=== PATIENT | male | born 1945 | race Asian ===

== ENCOUNTER 2016-07-07 03:07 | Observation (INO) | payer MEDICARE, BC ==
[2016-07-07] VITALS (8 sets, daily range): BP systolic 98–118; BP diastolic 56–64; PULSE 65–69; RESP 15–20; TEMP 98; Ht 167.6 cm; Wt 72.4 kg
[~2016-07-07] VITALS: Ht 167.6 cm; Wt 72.4 kg
[~2016-07-07 03:07] MED LIST: ALLO300T2 PO; ASPI-664 PO; GRAVIOLA PO; MULT-552 PO; PROBIOTIC ACID1 EACH PO; ROSU20TA PO; TAMS-14 PO; [UNRECOGNIZED DRUG - REMARK] PO
[2016-07-07] MEDS ORDERED: SOD CHLORIDE 0.9% 1,000 ML IV STA ×2 (03:16→09:34)
[2016-07-07] MEDS ORDERED: morphine 4 MG/ML VIAL IV STA (03:16)
[2016-07-07] MEDS ORDERED: ONDANSETRON 4 MG INJ IV STA (03:16)
[2016-07-07] MEDS ORDERED: DILTIAZEM 25 MG INJ IV ONE (03:30)
[2016-07-07 03:55] LABS: ADD SCAN DIFF NO
[2016-07-07 03:57] LABS: BASOPHILS % 0.5 % (0.0-2.0); EOSINOPHILS # 0.5 10^3/ul (0.0-0.5); EOSINOPHILS % 5.9 % (0.0-7.0); HEMATOCRIT 46.9 % (42.0-52.0); HEMOGLOBIN 15.7 g/dl (14.0-18.0); LYMPHOCYTES # 1.9 10^3/ul (0.8-2.9); MEAN CORPUSCULAR HGB CONC 33.5 g/dl (32.0-37.0); MEAN CORPUSCULAR VOLUME 92.5 fl (82.0-101.0); MEAN PLATELET VOLUME 9.7 fl (7.4-10.4); MONOCYTE # 0.6 10^3/ul (0.3-0.9); MONOCYTES % 6.6 % (0.0-11.0); NEUTROPHIL # 5.5 10^3/ul (1.6-7.5); NEUTROPHILS % 64.8 % (39.0-77.0); PLATELET COUNT 164 10^3/UL (140-415); RED BLOOD COUNT 5.07 10^6/ul (4.70-6.10); RED CELL DISTRIBUTION WIDTH 14.3 % (11.5-14.5); WHITE BLOOD COUNT 8.5 10^3/ul (4.8-10.8)
[2016-07-07 04:09] LABS: POTASSIUM 3.7 mmol/L (3.5-5.1)
[2016-07-07 04:12] LABS: CREATININE 0.85 mg/dl (0.61-1.24)
[2016-07-07 04:13] LABS: CALCIUM 9.7 mg/dl (8.4-10.2)
--- NOTE | 2016-07-07 04:20 | RADRPT ---
PROCEDURE: XR Chest. CLINICAL INDICATION: Chest pain TECHNIQUE: Single frontal chest x-ray. COMPARISON: 11/08/2015 FINDINGS: There is hypoinflation of the lungs. This accentuates the lung interstitium. No focal lung consoli dation is seen. The heart is not enlarged. ECG leads are projected over the chest. The patient is in lordotic position.. IMPRESSION: Hypoinflation of the lungs. No definite acute abnormality seen. RPTAT: HJES .Bereket Perdue MD, Date Time Electronically viewed and signed by .Bereket Perdue MD, on 07/07/2016 04:19 .S/
[2016-07-07 04:24] LABS: TROPONIN-I 0.014 ng/ml (0.00-0.12)
[2016-07-07 04:32] LABS: INR 0.92; PROTIME 12.4 Sec (12.2-14.2)
[2016-07-07 04:33] LABS: PARTIAL THROMBOPLASTIN TIME 31.4 Sec (25.0-35.0)
--- NOTE | 2016-07-07 05:15 | ERA ---
ER Documentation Chief Complaint Date/Time DATE: 07/07/16 TIME: 05:13 Chief Complaint palpitations, chest pressure pain,received aspirin 81 mg PO HPI This is a very pleasant 8-year-old male has a palpitation chest pressure. Since 1 hour ago. An 81 mg aspirin on arrival by EMS. Upon arrival patient is noted to be in rapid ventricular rate. Mild to moderate in intensity. Pain is mild to moderate intensity ROS All systems reviewed and are negative except as per history of present illness. Medications Home Meds Reported Medications [For Acid Reflux] No Conflict Check, PO 11/08/15 [Graviola] No Conflict Check, PO BID 11/08/15 Multivitamins* (Once Daily*) 1 Tab Tablet, 1 TAB PO DAILY, TAB 08/21/14 L.acidoph/L.rhamn/B.bif/B.long (PROBIOTIC ACIDOPHILUS BIOBEADS) 1 Each Tablet.dr , 1 EACH PO DAILY 08/21/14 Tamsulosin Hcl* (Flomax*) 0.4 Mg Cap.er.24h, 0.4 MG PO DAILY, CAP 08/21/14 Allopurinol* (Allopurinol*) 300 Mg Tablet, 150 MG PO DAILY, TAB 08/21/14 Aspirin (Low Dose Aspirin) 81 Mg Tablet.dr, 81 MG PO DAILY 08/21/14 Rosuvastatin Calcium* (Crestor*) 20 Mg Tablet, 20 MG PO HS, TAB 08/21/14 Allergies Allergies: Coded Allergies: No Known Allergy (Unverified , 11/08/15) PMhx/Soc History of Surgery: Yes (STENT PLACEMENT X2) Anesthesia Reaction: No Hx Neurological Disorder: No Hx Respiratory Disorders: No Hx Cardiac Disorders: No Hx Psychiatric Problems: No Hx Miscellaneous Medical Probl: Yes (HIGH CHOLESTEROL, GOUT, PROSTATE ISSUES) Hx Alcohol Use: Yes (OCCASIONAL ) Hx Substance Use: No Hx Tobacco Use: Yes (6 CIGS/DAY ) Smoking Status: Current every day smoker Physical Exam Vitals Vital Signs Date Time Temp Pulse Resp B/P Pulse Ox O2 Delivery O2 Flow Rate FiO2 07/07/16 03:36 Nasal Cannula 2 07/07/16 03:14 97.6 109 18 120/74 98 Physical Exam Const: [] Head: Atraumatic Eyes: Normal Conjunctiva ENT: Normal External Ears, Nose and Mouth. Neck: Full range of motion..~ No meningismus. Resp: Clear to auscultation bilaterally Cardio: Regular rate and rhythm, no murmurs Abd: Soft, non tender, non distended. Normal bowel sounds Skin: No petechiae or rashes Back: No midline or flank tenderness Ext: No cyanosis, or edema Neur: Awake and alert Psych: Normal Mood and Affect Result Diagram: 07/07/16 0348 07/07/16 0348 Results 24 hrs Laboratory Tests Test 07/07/16 03:48 Activated Partial Thromboplast Time 31.4Sec Anion Gap 18 Basophils # 0.010^3/ul Basophils % 0.5% Blood Urea Nitrogen 17mg/dl Calcium Level 9.7mg/dl Carbon Dioxide Level 25mmol/L Chloride Level 103mmol/L Creatinine 0.85mg/dl Eosinophils # 0.510^3/ul Eosinophils % 5.9% Glucose Level 90mg/dl Hematocrit 46.9% Hemoglobin 15.7g/dl INR International Normalized Ratio 0.92 Lymphocytes # 1.910^3/ul Lymphocytes % 22.0% Mean Corpuscular Hemoglobin 31.0pg Mean Corpuscular Hemoglobin Concent 33.5g/dl Mean Corpuscular Volume 92.5fl Mean Platelet Volume 9.7fl Monocytes # 0.610^3/ul Monocytes % 6.6% Neutrophils # 5.510^3/ul Neutrophils % 64.8% Nucleated Red Blood Cells # 0.010^3/ul Nucleated Red Blood Cells % 0.0/100WBC Platelet Count 69238^3/UL Potassium Level 3.7mmol/L Prothrombin Time 12.4Sec Prothrombin Time Ratio 1.0 Red Blood Count 5.0710^6/ul Red Cell Distribution Width 14.3% Sodium Level 142mmol/L Troponin I 0.014ng/ml White Blood Count 8.510^3/ul Current Medications Medications (Trade) Dose Ordered Sig/Keira Route PRN Reason Start Time Stop Time Status Last Admin Dose Admin Sodium Chloride (NS) 1,000 ml @ 1,000 mls/hr Q1H STAT IV 07/07/16 03:16 07/07/16 04:15 DC 07/07/16 03:47 Morphine Sulfate (morphine) 4 mg ONCE STAT IV 07/07/16 03:16 07/07/16 03:21 DC 07/07/16 03:35 Ondansetron HCl (Zofran Inj) 4 mg ONCE STAT IV 07/07/16 03:16 07/07/16 03:21 DC 07/07/16 03:35 Diltiazem HCl (Cardizem Iv) 20 mg ONCE ONCE IV 07/07/16 03:30 07/07/16 03:31 DC 07/07/16 03:35 Procedures/MDM EKG: Rate/Rhythm: Variable AL and QT intervals. Tachycardic rate QRS, ST, T-waves: No changes consistent w/ acute ischemia Impression: A. fib with RVR EKG: Post Cardizem Rate/Rhythm: Normal Sinus Rhythm QRS, ST, T-waves: No changes consistent w/ acute ischemia Impression: No evidence of ischemia or arrhythmia Chest X-ray 1V Interpreted by me: Soft Tissue: No acute abnormalities Bones: No acute abnormalities Mediastinum/Cardiac Silhouette/Lungs: No acute abnormalities Patient's symptoms are concerning for cardiac cause will require inpatient workup and continuous monitoring. Further w/u for ischemia, arrhythmia, PE or dissection will be deferred to the inpatient team. Accepting Care Team: Current data and ongoing care discussed. Time: 5:15 AM Primary Provider: Hospitalist Consulting: [XOXOXO] Outstanding Data: none Critical Care: Time: 44 minutes Treatments/Evaluations: Close monitoring and treatment of unstable vital signs, cardiorespiratory, and neurologic status, while maintaining tight balance of fluid, respiratory, and cardiac interventions. Departure Diagnosis: Primary Impression: Atrial fibrillation with RVR Condition: Serious GHAZALA PIRES KristenBecca Jul 07, 2016 05:15
--- NOTE | 2016-07-07 10:08 | QN ---
Documentation Comment Observation Note: Time: 4 hours Family Hx: Negative for diabetes Evaluation: Multiple exams showed improving symptoms and no evidence of clinical decompensation. HUNTER HANCOCK MD Jul 07, 2016 10:08
[2016-07-07] MEDS ORDERED: BISACODYL (EC) 5 MG TAB PO PRN (11:30)
[2016-07-07] MEDS ORDERED: DOCUSATE SODIUM 100 MG CAP PO PRN (11:30)
[2016-07-07] MEDS ORDERED: ONDANSETRON 4 MG INJ IV PRN (11:30)
[2016-07-07] MEDS ORDERED: MAGNESIUM HYDROXIDE 30ML CUP PO PRN (11:30)
[2016-07-07] MEDS ORDERED: ACETAMINOPHEN 325 MG TAB PO PRN (11:30)
[2016-07-07] MEDS ORDERED: NACL 0.9% 3 ML SYG IV SCH (11:30)
[2016-07-07] MEDS ORDERED: ALBUTEROL/IPRATROPIUM (NEB) 3 ML AMP HHN PRN (11:30)
[2016-07-07] MEDS ORDERED: ZOLPIDEM 5 MG TAB PO PRN (11:30)
[2016-07-07] MEDS ORDERED: morphine 2 MG INJ IV PRN (11:30)
[2016-07-07] MEDS ORDERED: HYDROCODONE/APAP (5/325) TAB PO PRN (11:30)
--- NOTE | 2016-07-07 11:39 | HP ---
DATE OF ADMISSION: 07/07/2016 CHIEF COMPLAINT: Chest pain, palpitations. REASON FOR ADMISSION: Atrial fibrillation with rapid ventricular rate, atypical chest pain, hyperte nsion. HISTORY OF PRESENT ILLNESS: This is a 71-year-old male who has a past medical history of previous c oronary artery disease and had a stent placement x2, hyperlipidemia, gout, BPH, history of previous 1 episode of atrial fibrillation as per the patient. He is currently on aspirin for anticoagulation and antiplatelet therapy. He presented to the [facility] ER yesterday night with chest pa in and palpitations. The patient describes pain as pressure-like, started approximately 1 hour prio r to admission. He took aspirin and upon arrival, he was noted to be in atrial fibrillation with ra pid ventricular rate. He also was complaining of pain 8 out of 10. He received nitroglycerin for c hest pain also received Cardizem IV, along with that a couple of doses of morphine and Zofran. His rate is now controlled. He is in intermittent atrial fibrillation with rapid rate up to 66 to 70, b ut his blood pressure drops down to 85/56. He is saturating 99% on 2 liters nasal cannula. He is g etting admitted to the telemetry floor for further workup of the chest pain and atrial fibrillation with rapid ventricular rate, and cardiology evaluation by Dr. Lopes. REVIEW OF SYSTEMS: Positive for chest, pressure-like pain, palpitations. Other 12 point review of systems has been obtained and is negative except what is mentioned in the history of present illness . PAST MEDICAL HISTORY: Notable for hypertension, hyperlipidemia, BPH, history of coronary artery dis ease, status post coronary artery stent placement x2, gout. PAST SURGICAL HISTORY: History of cardiac catheterization and had a stent placement x2. SOCIAL HISTORY: The patient still smokes cigarettes, typically 6 cigarettes a day, occasionally use s alcohol, no recreational drug use. FAMILY HISTORY: Not available. PHYSICAL EXAMINATION: VITAL SIGNS: Temperature 98, heart rate 66, respirations 16, blood pressure 95/56. The patient pre sented with a heart rate up to 112 with atrial fibrillation with rapid ventricular rate. GENERAL: Awake, alert, no acute distress. HEENT: Normal. Oropharynx clear. NECK: Supple, no JVD, no lymphadenopathy. LUNGS: Clear to auscultation. No crackles, no wheezes. HEART: S1, S2 irregularly irregular rate. ABDOMEN: Soft, nontender, nondistended. Bowel sounds are present. EXTREMITIES: No clubbing, cyanosis, edema. NEUROLOGICAL: Nonfocal, intact. PSYCHIATRIC: Appropriate affect and mood. SKIN: No rash. LABORATORY DATA/DIAGNOSTIC IMAGING: Showed WBC 8.5, hemoglobin 15.7, platelet count 164. Sodium 14 2, potassium 3.7, chloride 103, bicarbonate 25, BUN 17, creatinine 0.8, glucose 90, calcium 9.7. Tr oponin x1 negative. Prothrombin time 12.4, PTT 31.4, INR 0.92. WBC 8.5, hemoglobin 15.7, platelet count 164. Chest x-ray 1 view portable, done in the emergency room, hypoinflation and lungs, no acu te abnormality. EKG shows an irregularly irregular rhythm, heart rate in the 60s to 70s. He presented with a heart rate up to 125. IMPRESSION: This is a 71-year-old male with: 1. Atrial fibrillation with rapid ventricular rate, history of previous paroxysmal atrial fibrillat ion as per the patient. 2. Atypical chest pain. 3. History of coronary artery disease, status post previous 2 stent placement. 4. Hypertension. 5. Hyperlipidemia. 6. Benign prostatic hypertrophy. 7. History of smoking, current smoker. 8. Admission to the telemetry floor. Serial troponins and EKG for workup of atypical chest pain. 9. Cardiology consult, Dr. Lopes, to see patient. 10. Echocardiogram has been ordered for workup of atrial fibrillation. We will give him some IV fl uids for hypotension episode in the emergency room. Continue his home medications of Cardizem for r ate control. The patient currently seen in the emergency room and he will be getting admitted to [facility] telemetry floor. At the time of my evaluation, the smoking cessation counseling was done. Total time spent in this patient's evaluations, making assessments, plan, communicating with the [facility] staff and updating the patient at bedside took more than 90 minutes. Dictated By: TASH BRITO MD, KP/[place] Conf#: [id number] DID#: [id number]
[2016-07-07 14:16] LABS: CK-MB 0.77 ng/ml (0.0-2.4)
[2016-07-07 14:18] LABS: TROPONIN-I 0.022 ng/ml (0.00-0.12)
[2016-07-07] MEDS: DEXTROSE 5%-0.45% NACL 1,000 ML IV SCH (15:02)
[2016-07-07] MEDS ORDERED: METOPROLOL 5 MG INJ IV PRN (17:00)
[2016-07-07] MEDS ORDERED: NITROGLYCERIN (SL) 0.4 MG TAB SL PRN (17:00)
--- NOTE | 2016-07-07 18:15 | CONS ---
DATE OF ADMISSION: 07/07/2016 DATE OF CONSULTATION: 07/07/2016 REASON FOR CONSULTATION: Paroxysmal atrial fibrillation with rapid ventricular response, as well as chest pain, assess for acute coronary syndrome. REQUESTING PHYSICIAN: Dr. Tash Glez. HISTORY OF PRESENT ILLNESS: Mr. Perez is a 71-year-old male with history of coronary artery dise ase, status post prior PTCA and stent placement, dyslipidemia, hypertension, BPH, paroxysmal atrial fibrillation on aspirin, not systemic anticoagulation, who presents with complaints of chest pain de scribed as a pressure-like, and was found to be in atrial fibrillation with rapid ventricular respon se. Upon arrival, temperature 97.6, blood pressure 120/74, [id number], respirations 18, saturating 98 %. The patient's labs revealed white count 8.5, hemoglobin 15.7, platelet count 164. Sodium 142, p otassium 3.7, creatinine 0.85, BUN 17. Troponin negative. INR 0.92. The patient underwent a chest x-ray revealing hypoinflation of the lungs, no definite acute abnormalities seen. The patient's el ectrocardiogram was atrial fibrillation at a rate of 143, normal axis with diffuse nonspecific ST an d T-wave abnormalities. The patient was treated with IV fluid hydration, diltiazem 20 mg IV x1, and admitted to the floor. Since admission to the floor, the patient has converted to sinus rhythm, wh ere he remains. Sinus rhythm, sinus antoine, high 50s to low 60s. PAST MEDICAL HISTORY: As above in HPI. MEDICATIONS CURRENTLY IN HOSPITAL: 1. Aspirin 81 mg daily. 2. Flomax 0.4 mg daily. 3. Lipitor 20 mg at bedtime. 4. Pepcid. 5. Zofran. 6. Morphine. 7. Colace. 8. Dulcolax. 9. Ambien. 10. DuoNebs. 11. Allopurinol. ALLERGIES: NO KNOWN DRUG ALLERGIES. SOCIAL HISTORY: Positive tobacco. No ETOH or illicit drug use. FAMILY HISTORY: No history of sudden cardiac or early CAD. REVIEW OF SYSTEMS: As above in HPI. CONSTITUTIONAL: No fevers, chills. PULMONARY: No current shortness of breath. CARDIOVASCULAR: Atrial fibrillation, chest pain. GASTROINTESTINAL: No vomiting. GENITOURINARY: No hematuria. MUSCULOSKELETAL: Degenerative joint disease. PSYCHIATRIC: The patient denies depression. NEUROLOGIC: No documented history of CVA. PHYSICAL EXAMINATION: VITAL SIGNS: Temperature 98.2, blood pressure 108/56, pulse 70, respiratory rate 18, satting 98%. GENERAL: The patient is alert, awake, and complaining of intermittent chest pain. NECK: JVP approximately 8 cm water. CHEST: Fair air movement throughout. HEART: Regular rate and rhythm. S1, S2. I/ systolic murmur, nondisplaced PMI. ABDOMEN: Positive bowel sounds, soft. EXTREMITIES: No pitting edema, 1+ pulses bilaterally, posterior tibial. LABORATORY DATA: As above in HPI. Most recently from today, troponin negative x2. IMAGING STUDIES: As above in HPI. No further imaging studies for my review at this time. ECG: As above in HPI. No further electrocardiograms for my review at this time. IMPRESSION: 1. Paroxysmal atrial fibrillation with rapid ventricular response, now in sinus rhythm. 2. Chest pain, assess for acute coronary syndrome. 3. History of percutaneous transluminal coronary angioplasty and stent placement, unknown vessels. 4. Hypertension. 5. Dyslipidemia. RECOMMENDATIONS: 1. At this time, would maintain patient on telemetry monitoring to follow rhythm and rate control c losely. 2. Will complete a rule out for myocardial infarction to ensure the patient's chest pain was not in dicative of acute coronary syndrome, such as an acute myocardial infarction. 3. Continue the patient's current statin therapy and adjust it according to a fasting lipid panel t o be checked. 4. Continue the patient's aspirin, but will increase to 325 mg aspirin at this time to prevent thro mboembolic complication in the setting of paroxysmal atrial fibrillation and will give consideration to initiation of systemic anticoagulation for prevention of thromboembolic complications of atrial fibrillation. 5. Will initiate patient on beta-neftali for improvement in heart rate control in the setting of EK G abnormalities and chest pain. 6. Check a 2D echocardiogram to further assess patient's ejection fraction, wall motion, rule any m ajor valve abnormalities. 7. Check a TSH to be sure that subclinical hyperthyroidism is not contributing to the patient's cur rent bout of tachyarrhythmia. 8. The patient ruled out for myocardial infarction. Given the patient's history of percutaneous tr ansluminal coronary angioplasty and stent placement, EKG abnormalities, the patient will benefit fro m further risk stratification inpatient and, thus will be scheduled to have a stress first thing in the morning. Thanks for allowing me to take part in the care of this patient. I will continue to follow along ve ry closely with you with further recommendations to be made as the patient progresses through his in patient hospital clinical course. Dictated By: SARAVANAN MOHAN/[place] Conf#: [id number] DID#: [id number] CC: TASH GLEZ MD; MADELIN DOMÍNGUEZ MD;*[facility]*
[2016-07-07 18:32] LABS: TROPONIN-I 0.016 ng/ml (0.00-0.12)
[2016-07-07 18:37] LABS: CK-MB 0.84 ng/ml (0.0-2.4)
--- NOTE | 2016-07-07 19:31 | RADRPT ---
Echocardiogram Report Patient Name: BETTY GAVIN Gender: Male Date: 1945 Study Date: 07-Jul-2016 Artist Relationship Manager: [facility] Location: [facility] Ref. Physician: TASH BRITO Quality: Good Procedures: Transthoracic echocardiogram with complete 2D, M-Mode, and doppler examination. Indications: Atrial Fibrillation WITH RVR. 2D/M Mode Doppler Measurement Value Normal Ranges Measurement Value Normal Ranges LVIDd 2D 4.6 3.5 - 5.6 cm AV Peak Patrice 1.3 m/sec LVIDs 2D 2.9 2.1 - 4.1 cm AV Peak PG 7.0 mmHg FS 2D 36.4 % AI Peak PG 47.0 mmHg LVPWd 2D 1.3 0.6 - 1.1 cm AI Peak Patrice 3.4 m/sec IVSd 2D 1.3 0.6 - 1.1 cm AI PHT 576.0 msec IVS/LVPW 2D 1.0 LVOT Peak Patrice 0.9 m/sec AoR Diam 2D 2.9 2.0 - 3.7 cm LVOT Peak PG 3.0 mmHg LA/Ao 2D 1 0 - 1 MV E Peak Patrice 1.0 m/sec EDV 2D 96.7 cm3 MV A Peak Patrice 0.8 m/sec ESV 2D 24.9 cm3 MV E/A 1.3 LA Dimen 2D 3.9 2.3 - 4.0 cm MV Decel Time 218 msec MV E/A 1.3 TR Peak Patrice 2.3 m/sec TR Peak PG 20.0 mmHg Findings Left Ventricle: Normal left ventricular systolic function. Normal left ventricular cavity size. Mild concentric left ventricular hypertrophy. Ejection fraction is visually estimated at 55 %. Abnormal Diastolic Function. Right Ventricle: Normal right ventricular size. Normal right ventricular systolic function. Left Atrium: Upper limit of normal left atrial size. Right Atrium: The right atrium is normal in size. Mitral Valve: Mild mitral leaflet calcification. Mild mitral annular calcification. Trace mitral regurgitation. Aortic Valve: Trileaflet aortic valve. Mild aortic valve regurgitation. Tricuspid Valve: Estimated peak PA systolic pressure 23 mmHg. There is mild tricuspid regurgitation. Pulmonic Valve: Pulmonic valve not well visualized. There is mild pulmonic regurgitation. Pericardium: Normal pericardium with no significant pericardial effusion. Aorta: Normal aortic root. IVC: Normal size and normal respiratory collapse consistent with normal right atrial pressure. Conclusions Normal left ventricular systolic function. Normal left ventricular cavity size. Mild concentric left ventricular hypertrophy. Ejection fraction is visually estimated at 55 %. Abnormal Diastolic Function. Mild mitral leaflet calcification. Mild mitral annular calcification. Trace mitral regurgitation. Trileaflet aortic valve. Mild aortic valve regurgitation. Estimated peak PA systolic pressure 23 mmHg. There is mild tricuspid regurgitation. Pulmonic valve not well visualized. There is mild pulmonic regurgitation. Electronically Signed By: Malcolm Lopes 07-Jul-2016 19:30:48 -0800 Patient Name: BETTY GAVIN Study Date: 07-Jul-2016 [id number]
[2016-07-07] MEDS ORDERED: ATORVASTATIN 20 MG TAB PO SCH (21:00)
[2016-07-07] MEDS: METOPROLOL 25 MG TAB PO SCH (21:00)
[2016-07-07] MEDS: FAMOTIDINE 20 MG INJ IV SCH (21:02)
[2016-07-07] MEDS: ENOXAPARIN 80 MG/0.8 ML SYG SC SCH (21:14)
[2016-07-08] VITALS (9 sets, daily range): BP systolic 92–130; BP diastolic 58–72; PULSE 61–72; RESP 15–19
[2016-07-08] MEDS: DEXTROSE 5%-0.45% NACL 1,000 ML IV SCH ×2 (01:37→04:13)
[2016-07-08 06:54] LABS: ADD SCAN DIFF NO
[2016-07-08 07:19] LABS: BASOPHILS % 0.6 % (0.0-2.0); EOSINOPHILS # 0.5 10^3/ul (0.0-0.5); EOSINOPHILS % 7.4 % (0.0-7.0); HEMATOCRIT 42.2 % (42.0-52.0); HEMOGLOBIN 13.8 g/dl (14.0-18.0); LYMPHOCYTES # 1.6 10^3/ul (0.8-2.9); LYMPHOCYTES % 24.3 % (15.0-51.0); MEAN CORPUSCULAR HEMOGLOBIN 30.9 pg (29.0-33.0); MEAN CORPUSCULAR HGB CONC 32.7 g/dl (32.0-37.0); MEAN CORPUSCULAR VOLUME 94.4 fl (82.0-101.0); MEAN PLATELET VOLUME 9.8 fl (7.4-10.4); MONOCYTE # 0.5 10^3/ul (0.3-0.9); MONOCYTES % 6.9 % (0.0-11.0); NEUTROPHIL # 3.9 10^3/ul (1.6-7.5); NEUTROPHILS % 60.5 % (39.0-77.0); PLATELET COUNT 154 10^3/UL (140-415); RED BLOOD COUNT 4.47 10^6/ul (4.70-6.10); RED CELL DISTRIBUTION WIDTH 14.5 % (11.5-14.5); WHITE BLOOD COUNT 6.5 10^3/ul (4.8-10.8)
[2016-07-08 07:32] LABS: T3 UPTAKE 42.8 % (23.5-40.5)
[2016-07-08 07:46] LABS: THYROID STIMULATING HORMONE 0.823 MIU/L (0.465-4.680)
[2016-07-08 07:57] LABS: ALBUMIN 3.1 g/dl (3.3-4.9)
[2016-07-08 07:58] LABS: POTASSIUM 4.1 mmol/L (3.5-5.1)
[2016-07-08 08:00] LABS: BILIRUBIN,INDIRECT 0.2 mg/dl (0-1.1); BILIRUBIN,TOTAL 0.2 mg/dl (0.2-1.3); CREATININE 0.91 mg/dl (0.61-1.24)
[2016-07-08 08:01] LABS: ALBUMIN/GLOBULIN RATIO 1.14; CALCIUM 8.5 mg/dl (8.4-10.2); TOTAL PROTEIN 5.8 g/dl (6.1-8.1)
[2016-07-08 08:02] LABS: CHOL/HDL RATIO 2.8 RATIO; MAGNESIUM 1.8 mg/dl (1.7-2.5)
[2016-07-08] MEDS ORDERED: ALLOPURINOL 300 MG TAB PO SCH (09:00)
[2016-07-08] MEDS ORDERED: TAMSULOSIN (SR) 0.4 MG CAP PO SCH (09:00)
[2016-07-08] MEDS: FAMOTIDINE 20 MG INJ IV SCH (09:00)
[2016-07-08] MEDS ORDERED: MULTIVITAMINS THERAPEUTIC TAB PO SCH (09:00)
[2016-07-08] MEDS: ENOXAPARIN 80 MG/0.8 ML SYG SC SCH (09:00)
[2016-07-08] MEDS: METOPROLOL 25 MG TAB PO SCH (09:00)
[2016-07-08] MEDS ORDERED: ASPIRIN (EC) 81 MG TAB PO SCH (09:00)
--- NOTE | 2016-07-08 09:15 | PN ---
Date/Time of Note Date/Time of Note DATE: 07/08/16 TIME: 09:12 Assessment/Plan VTE Prophylaxis VTE Prophylaxis Intervention: SCD's Lines/Catheters IV Catheter Type (from Nrsg): Peripheral IV Urinary Cath still in place: No Assessment/Plan Assessment/Plan 1. Atrial fibrillation with rapid ventricular rate, history of previous paroxysmal atrial fibrillation as per the patient. 2. Atypical chest pain. 3. History of coronary artery disease, status post previous 2 stent placement. 4. Hypertension. 5. Hyperlipidemia. 6. Benign prostatic hypertrophy. 7. History of smoking, current smoker. 8. Admission to the telemetry floor. Serial troponins and EKG for workup of atypical chest pain. 9. Cardiology consult, Dr. Lopes, to see patient. s/p cardiology evaluation yeterday, plan for lexiscan today, if negaive then d/ c home today Subjective 24 Hr Interval Summary Free Text/Dictation no chest pain, rate controlled, plan for lexiscan today Exam/Review of Systems Vital Signs Vitals Vital Signs Date Time Temp Pulse Resp B/P Pulse Ox O2 Delivery O2 Flow Rate FiO2 07/08/16 08:19 61 07/08/16 08:06 98.2 19 107/68 97 07/07/16 13:55 Room Air 07/07/16 13:01 2.0 Intake and Output 07/07/16 07/07/16 07/08/16 15:00 23:00 07:00 Intake Total 1000 ml 945 ml 730 ml Output Total 1000 ml Balance 1000 ml 945 ml -270 ml Exam GENERAL: Awake, alert, no acute distress. HEENT: Normal. Oropharynx clear. NECK: Supple, no JVD, no lymphadenopathy. LUNGS: Clear to auscultation. No crackles, no wheezes. HEART: S1, S2 irregularly irregular rate. ABDOMEN: Soft, nontender, nondistended. Bowel sounds are present. EXTREMITIES: No clubbing, cyanosis, edema. NEUROLOGICAL: Nonfocal, intact. PSYCHIATRIC: Appropriate affect and mood. SKIN: No rash. Results Result Diagram: 07/08/16 0607/08/16620 Results 24 hrs Laboratory Tests Test 07/07/16 13:40 07/07/16 17:40 07/08/16 06:21 Creatine Kinase 105 87 Creatine Kinase Index 0.7 1.0 Creatinine Kinase MB (Mass) 0.77 0.84 Troponin I 0.022 0.016 Alanine Aminotransferase (ALT/SGPT) 29 Albumin 3.1 L Albumin/Globulin Ratio 1.14 Alkaline Phosphatase 38 L Anion Gap 12 Aspartate Amino Transf (AST/SGOT) 24 Basophils # 0.0 Basophils % 0.6 Blood Urea Nitrogen 12 Calcium Level 8.5 Carbon Dioxide Level 29 Chloride Level 106 Cholesterol Level 92 L Cholesterol/HDL Ratio 2.8 Creatinine 0.91 Direct Bilirubin 0.00 Eosinophils # 0.5 Eosinophils % 7.4 H Free Thyroxine Index 3.00 Globulin 2.70 Glucose Level 88 HDL Cholesterol 32 Hematocrit 42.2 Hemoglobin 13.8 L Hemoglobin A1c 5.6 Indirect Bilirubin 0.2 LDL Cholesterol, Calculated 43 Lymphocytes # 1.6 Lymphocytes % 24.3 Magnesium Level 1.8 Mean Corpuscular Hemoglobin 30.9 Mean Corpuscular Hemoglobin Concent 32.7 Mean Corpuscular Volume 94.4 Mean Platelet Volume 9.8 Monocytes # 0.5 Monocytes % 6.9 Neutrophils # 3.9 Neutrophils % 60.5 Nucleated Red Blood Cells # 0.0 Nucleated Red Blood Cells % 0.0 Platelet Count 154 Potassium Level 4.1 Red Blood Count 4.47 L Red Cell Distribution Width 14.5 Sodium Level 143 Thyroid Stimulating Hormone (TSH) 0.823 Thyroxine (T4) 7.0 Total Bilirubin 0.2 Total Protein 5.8 L Triglycerides Level 85 Triiodothyronine (T3) Uptake 42.8 H White Blood Count 6.5 # Medications Medications Current Medications Allopurinol (Zyloprim) 150 mg DAILY PO ; Start 07/08/16 at 09:00 Aspirin (Halfprin) 81 mg DAILY PO ; Start 07/08/16 at 09:00 Multivitamins Therapeutic (Theragran) 1 tab DAILY PO ; Start 07/08/16 at 09:00 Tamsulosin HCl (Flomax) 0.4 mg DAILY PO ; Start 07/08/16 at 09:00 Atorvastatin Calcium 20 mg 20 mg QHS PO Last administered on 07/07/16 21:02; Admin Dose 20 MG; Start 07/07/16 at 21:00 Dextrose/Sodium Chloride (D5-1/2ns) 1,000 ml @ 70 mls/hr [id number] IV Last administered on 07/08/16 04:13; Admin Dose 70 MLS/HR; Start 07/07/16 at 11:19; Stop 07/08/16 at 15:53 Ondansetron HCl (Zofran Inj) 4 mg Q6H PRN IV NAUSEA AND/OR VOMITING; Start 07/07 at 11:30 Acetaminophen (Tylenol Tab) 650 mg Q6H PRN PO PAIN LEVEL 1-3 OR FEVER; Start at 11:30 Acetaminophen/ Hydrocodone Bitart ([place] (5/325)) 1 tab Q6H PRN PO MODERATE PAIN LEVEL 4-6; Start 07/07/16 at 11:30 Morphine Sulfate (morphine) 2 mg Q4H PRN IV SEVERE PAIN LEVEL 7-10; Start at 11:30 Docusate Sodium (Colace) 100 mg Q12H PRN PO CONSTIPATION; Start 07/07/16 at 11: 30 Magnesium Hydroxide (Milk Of Mag) 30 ml DAILY PRN PO CONSTIPATION; Start at 11:30 Bisacodyl (Dulcolax) 5 mg DAILY PRN PO CONSTIPATION; Start 07/07/16 at 11:30 Zolpidem Tartrate (Ambien) 5 mg QHS PRN PO SLEEP; Start 07/07/16 at 11:30 Famotidine (Pepcid Iv) 20 mg Q12 IV Last administered on 07/07/16 21:02; Admin Dose 20 MG; Start 07/07/16 at 21:00 Enoxaparin Sodium (Lovenox) 70 mg Q12 SC Last administered on 07/07/16 21:14; Admin Dose 70 MG; Start 07/07/16 at 21:00 Metoprolol Tartrate (Lopressor) 25 mg BID PO ; Start 07/07/16 at 21:00 Metoprolol Tartrate (Lopressor) 5 mg Q4H PRN IV HR>110 Hold SBP<100; Start 07/07 at 17:00 Nitroglycerin (Nitroglycerin (Sl Tab) 0.4 Mg) 1 tab Q5M PRN SL ANGINA; Start at 17:00 TASH BRITO MD Jul 08, 2016 09:14
--- NOTE | 2016-07-08 09:16 | PDOCDIS ---
Discharge Instructions CONDITION Patient Condition: Good HOME CARE INSTRUCTIONS: Special Diet: cardiac ACTIVITY: Activity Restrictions: Slowly Increase Activity Rest between Activity Avoid heavy lifting Avoid Heavy Housework FOLLOW UP/APPOINTMENTS Appointments follow up with his own PMD and [facility] [employer] in [place] in 1-2 week after discharge TASH BRITO MD Jul 08, 2016 09:16
[2016-07-08] MEDS ORDERED: METO-448 PO (09:17)
[2016-07-08] MEDS ORDERED: REGADENOSON 0.4 MG/5 ML SYG ONE (09:46)
--- NOTE | 2016-07-08 11:02 | CONS ---
Date/Time of Note Date/Time of Note DATE: 07/08/16 TIME: 10:58 Assessment/Plan Assessment/Plan Chief Complaint/Hosp Course IMPRESSION: 1. Paroxysmal atrial fibrillation with rapid ventricular response, now in sinus rhythm. 2. Chest pain, assess for acute coronary syndrome.-negative troponin x 3 3. History of percutaneous transluminal coronary angioplasty and stent placement, unknown vessels. 4. Hypertension. 5. Dyslipidemia. Recc: -Tele -serial ecg's -Continue BB/asa/statin -Would consider d/c on eliquis/xarelto -Lexiscan stress test today Problems: Consultation Date/Type/Reason Admit Date/Time Jul 07, 2016 at 13:58 Initial Consult Date 07/07/2016 Type of Consultation: cardiology Reason for Consultation chest pain/af Referring Provider: TASH BRITO MD Exam/Review of Systems Vital Signs Vitals Vital Signs Date Time Temp Pulse Resp B/P Pulse Ox O2 Delivery O2 Flow Rate FiO2 07/08/16 08:19 61 07/08/16 08:06 98.2 19 107/68 97 07/07/16 13:55 Room Air 07/07/16 13:01 2.0 Intake and Output 07/07/16 07/07/16 07/08/16 15:00 23:00 07:00 Intake Total 1000 ml 945 ml 730 ml Output Total 1000 ml Balance 1000 ml 945 ml -270 ml Exam Review of Systems: CONSTITUTIONAL: No fevers, chills. PULMONARY: No sob CARDIOVASCULAR: intermittent chest pain GASTROINTESTINAL: No nausea/vomiting. GENITOURINARY: No hematuria/dysuria. MUSCULOSKELETAL: No myagias/arthalgias. PSYCHIATRIC: The patient denies depression. NEUROLOGIC: No weakness Constitutional: alert, oriented Psych: no complaints Head: normocephalic ENMT: mucosa pink and moist Neck: jvd (8-9 cm water), supple Respiratory: clear to auscultation Cardiovascular: regular rate and rhythm Gastrointestinal: non-tender, soft Musculoskeletal: muscle tone (none) Extremities: edema (none) Neurological: other (no focal deficits) Results Result Diagram: 07/08/16 0621 07/08/16 0621 Results 24 hrs Laboratory Tests Test 07/07/16 13:40 07/07/16 17:40 07/08/16 06:21 Creatine Kinase 105 87 Creatine Kinase Index 0.7 1.0 Creatinine Kinase MB (Mass) 0.77 0.84 Troponin I 0.022 0.016 Alanine Aminotransferase (ALT/SGPT) 29 Albumin 3.1 L Albumin/Globulin Ratio 1.14 Alkaline Phosphatase 38 L Anion Gap 12 Aspartate Amino Transf (AST/SGOT) 24 Basophils # 0.0 Basophils % 0.6 Blood Urea Nitrogen 12 Calcium Level 8.5 Carbon Dioxide Level 29 Chloride Level 106 Cholesterol Level 92 L Cholesterol/HDL Ratio 2.8 Creatinine 0.91 Direct Bilirubin 0.00 Eosinophils # 0.5 Eosinophils % 7.4 H Free Thyroxine Index 3.00 Globulin 2.70 Glucose Level 88 HDL Cholesterol 32 Hematocrit 42.2 Hemoglobin 13.8 L Hemoglobin A1c 5.6 Indirect Bilirubin 0.2 LDL Cholesterol, Calculated 43 Lymphocytes # 1.6 Lymphocytes % 24.3 Magnesium Level 1.8 Mean Corpuscular Hemoglobin 30.9 Mean Corpuscular Hemoglobin Concent 32.7 Mean Corpuscular Volume 94.4 Mean Platelet Volume 9.8 Monocytes # 0.5 Monocytes % 6.9 Neutrophils # 3.9 Neutrophils % 60.5 Nucleated Red Blood Cells # 0.0 Nucleated Red Blood Cells % 0.0 Platelet Count 154 Potassium Level 4.1 Red Blood Count 4.47 L Red Cell Distribution Width 14.5 Sodium Level 143 Thyroid Stimulating Hormone (TSH) 0.823 Thyroxine (T4) 7.0 Total Bilirubin 0.2 Total Protein 5.8 L Triglycerides Level 85 Triiodothyronine (T3) Uptake 42.8 H White Blood Count 6.5 # Medications Medications Current Medications Allopurinol (Zyloprim) 150 mg DAILY PO Last administered on 07/08/16 09:22; Admin Dose 150 MG; Start 07/08/16 at 09:00 Aspirin (Halfprin) 81 mg DAILY PO Last administered on 07/08/16 09:22; Admin Dose 81 MG; Start 07/08/16 at 09:00 Multivitamins Therapeutic (Theragran) 1 tab DAILY PO Last administered on 09:23; Admin Dose 1 TAB; Start 07/08/16 at 09:00 Tamsulosin HCl (Flomax) 0.4 mg DAILY PO Last administered on 07/08/16 09:21; Admin Dose 0.4 MG; Start 07/08/16 at 09:00 Atorvastatin Calcium 20 mg 20 mg QHS PO Last administered on 07/07/16 21:02; Admin Dose 20 MG; Start 07/07/16 at 21:00 Dextrose/Sodium Chloride (D5-1/2ns) 1,000 ml @ 70 mls/hr [id number] IV Last administered on 07/08/16 04:13; Admin Dose 70 MLS/HR; Start 07/07/16 at 11:19; Stop 07/08/16 at 15:53 Ondansetron HCl (Zofran Inj) 4 mg Q6H PRN IV NAUSEA AND/OR VOMITING; Start 07/07 at 11:30 Acetaminophen (Tylenol Tab) 650 mg Q6H PRN PO PAIN LEVEL 1-3 OR FEVER; Start at 11:30 Acetaminophen/ Hydrocodone Bitart (Biloxi (5/325)) 1 tab Q6H PRN PO MODERATE PAIN LEVEL 4-6; Start 07/07/16 at 11:30 Morphine Sulfate (morphine) 2 mg Q4H PRN IV SEVERE PAIN LEVEL 7-10; Start at 11:30 Docusate Sodium (Colace) 100 mg Q12H PRN PO CONSTIPATION; Start 07/07/16 at 11: 30 Magnesium Hydroxide (Milk Of Mag) 30 ml DAILY PRN PO CONSTIPATION; Start at 11:30 Bisacodyl (Dulcolax) 5 mg DAILY PRN PO CONSTIPATION; Start 07/07/16 at 11:30 Zolpidem Tartrate (Ambien) 5 mg QHS PRN PO SLEEP; Start 07/07/16 at 11:30 Famotidine (Pepcid Iv) 20 mg Q12 IV Last administered on 07/07/16 21:02; Admin Dose 20 MG; Start 07/07/16 at 21:00 Enoxaparin Sodium (Lovenox) 70 mg Q12 SC Last administered on 07/07/16 21:14; Admin Dose 70 MG; Start 07/07/16 at 21:00 Metoprolol Tartrate (Lopressor) 25 mg BID PO ; Start 07/07/16 at 21:00 Metoprolol Tartrate (Lopressor) 5 mg Q4H PRN IV HR>110 Hold SBP<100; Start 07/07 at 17:00 Nitroglycerin (Nitroglycerin (Sl Tab) 0.4 Mg) 1 tab Q5M PRN SL ANGINA; Start at 17:00 SARAVANAN JEFFERS Jul 08, 2016 11:02
--- NOTE | 2016-07-08 11:52 | RADRPT ---
PROCEDURE: Nuclear medicine myocardial perfusion scan CLINICAL INDICATION: Chest pain TECHNIQUE: 30.4 mCi of technetium 99m Cardiolite was administered for the stress study. 9.8 mCi o f technetium 99m Cardiolite was administered for the resting study. The patient was stressed with 0. 4 mg of Lexiscan. Images were reviewed in the short axis, vertical long axis, and horizontal long a xis views. Wall motion was assessed and ejection fraction was calculated as well. Images were revie wed on a high-resolution PACS workstation. COMPARISON: None available FINDINGS: Left ventricular size is within normal limits. There is moderate soft tissue and bowel attenuation artifact. The stress tomographic images demonstrate a normal pattern of perfusion. The resting bishop ographic images demonstrate a similar pattern. There is no evidence for reversible ischemia. Wall motion is normal. The ejection fraction is calculated at 61%. IMPRESSION: 1. Negative myocardial perfusion scan. 2. There is no evidence for reversible ischemia. 3. Normal wall motion with normal ejection fraction of 61%. RPTAT: HMJB .Irwin Galarza MD, Date Time Electronically viewed and signed by .Irwin Galarza MD, MD on 07/08/2016 11:52 .B/
--- NOTE | 2016-07-09 00:20 | DS ---
DATE OF ADMISSION: 07/07/2016 DATE OF DISCHARGE: 07/08/2016 DISCHARGE DIAGNOSES: 1. Atrial fibrillation with rapid ventricular rate. 2. Atypical chest pain status post stress test negative. 3. History of hypertension. 4. History of hyperlipidemia. 5. History of coronary artery disease, status post previous stent placement. 6. History of benign prostatic hypertrophy. 7. History of paroxysmal atrial fibrillation, currently in normal sinus rhythm. CONSULTATIONS DONE DURING THIS HOSPITALIZATION: Cardiology consult, Dr. Malcolm Lopes. PROCEDURES PERFORMED DURING THIS HOSPITALIZATION: The patient had a Lexiscan myocardial perfusion s tress test negative for any perfusion defects, the ejection fraction was normal. HOSPITAL COURSE: This is a 71-year-old male with a past medical history of BPH, hypertension, hyper lipidemia, coronary artery disease, status post previous cardiac stent placement who presented with a complaint of chest pain. He was noted to have atrial fibrillation with rapid ventricular rate, wh ich was improved after he was started on some rate control medications. He was evaluated by cardiol ogist, Dr. Malcolm Lopes, and had a Lexiscan myocardial perfusion stress test for atypical chest darline n. His stress test was normal, ejection fraction was normal and no perfusion defects, so he got dis charged home with prescriptions of metoprolol upon discharge. DISPOSITION: To home. DISCHARGE CONDITION: Stable and improved compared to admission. DISCHARGE ACTIVITIES: As tolerated, slowly resume to the normal baseline activity. DISCHARGE MEDICATIONS: He is given new prescriptions of metoprolol 25 mg p.o. b.i.d. and he is cont inued on all of his other home medications on discharge including aspirin 81 mg p.o. daily. DISCHARGE FOLLOWUP AND INSTRUCTIONS: The patient is to follow up with his own primary care doctor a nd sustain engineer as outpatient in [place] and he will be followed up by Dr. Brito as outpatient also. The patient has been explained about the discharge plan and followup instructions. He understood an d verbalized understanding. Dictated By: TASH BRITO MD, KP/[place] Conf#: [id number] DID#: [id number]
--- NOTE | 2016-07-09 07:12 | CONS ---
DATE OF ADMISSION: 07/07/2016 DATE OF CONSULTATION: 07/08/2016 LEXISCAN CARDIOLITE STRESS TEST INDICATIONS: Chest pain, assess for ischemia. BASELINE VITAL SIGNS AND ELECTROCARDIOGRAM: Pulse 63, blood pressure 125/73. Electrocardiogram rev eals normal sinus rhythm, rate of 63, normal axis, normal intervals, with isolated T-wave flattening in lead aVL. PROCEDURE: The patient underwent standard Lexiscan infusion protocol over 10 seconds followed by ra diolabeled tracer. The patient's test was stopped due to completion of protocol. Maximal achieved blood pressure during the test 114/77. Maximum heart rate during the test 86. ECG FINDINGS: The patient did not develop any new Lexiscan-induced ST or T-wave changes from baseli ne abnormalities. No documented PVCs. SYMPTOMS: The patient had complaints of shortness breath during stress test that resolved in recove ry. No chest pain. IMPRESSION: 1. No Lexiscan-induced ST or T-wave changes from baseline abnormalities diagnostic for ischemia. 2. Complaints of shortness breath during stress test that resolved in recovery. 3. No documented premature ventricular contractions during stress test. 4. No chest pain. 5. Report of nuclear images to follow in separate dictation. Dictated By: SARAVANAN MOHAN/[place] Conf#: [id number] DID#: [id number]
== END 2016-07-08 18:25 | disposition home or self-care (01) ==
LOC: E/R 03:07 → TEL 13:58
PROVIDERS: ADMIT Family Medicine; ATTEND Family Medicine
DX: I48.91 Unspecified atrial fibrillation (principal); I25.10 Atherosclerotic heart disease of native coronary artery without angina pectoris; I10 Essential (primary) hypertension; E78.5 Hyperlipidemia, unspecified; N40.0 Benign prostatic hyperplasia without lower urinary tract symptoms; F17.200 Nicotine dependence, unspecified, uncomplicated
CPT/HCPCS: 36415; 71010; 78452; 80048; 80053; 80061; 82550; 82553; 83036; 83735; 84436; 84443; 84479; 84484; 85025; 85610; 85730; 93005; 93017; 93306; 96361; 96372; 96374; 96375; 99291; A9500; A9505; G0378; J1650; J2270; J2405; J2785; J7030; J7042

== ENCOUNTER 2016-11-04 02:05 | Emergency (ER) | payer MEDICARE, BC ==
[~2016-11-04] VITALS: Ht 167.6 cm; Wt 69.0 kg
[~2016-11-04 02:05] MED LIST changes: -GRAVIOLA PO; +METO-448 PO; -[UNRECOGNIZED DRUG - REMARK] PO
[2016-11-04 02:30] VITALS: Ht 167.6 cm; Wt 69.0 kg
[2016-11-04] MEDS ORDERED: ATOR40TA68 PO (03:01)
[2016-11-04] MEDS ORDERED: GRAVIOLA PO (03:01)
[2016-11-04] MEDS ORDERED: RIVA20TA PO (03:01)
[2016-11-04] MEDS ORDERED: MULT1TAB10 PO (03:01)
[2016-11-04] MEDS ORDERED: SOD CHLORIDE 0.9% 500 ML IV STA (03:07)
[2016-11-04 03:18] LABS: ADD SCAN DIFF NO
[2016-11-04 03:25] LABS: BASOPHILS % 0.6 % (0.0-2.0); EOSINOPHILS # 0.5 10^3/ul (0.0-0.5); EOSINOPHILS % 7.3 % (0.0-7.0); HEMATOCRIT 42.1 % (42.0-52.0); HEMOGLOBIN 14.1 g/dl (14.0-18.0); LYMPHOCYTES # 1.3 10^3/ul (0.8-2.9); LYMPHOCYTES % 19.5 % (15.0-51.0); MEAN CORPUSCULAR HEMOGLOBIN 31.1 pg (29.0-33.0); MEAN CORPUSCULAR HGB CONC 33.5 g/dl (32.0-37.0); MEAN CORPUSCULAR VOLUME 92.7 fl (82.0-101.0); MEAN PLATELET VOLUME 10.1 fl (7.4-10.4); MONOCYTE # 0.5 10^3/ul (0.3-0.9); MONOCYTES % 7.3 % (0.0-11.0); NEUTROPHIL # 4.2 10^3/ul (1.6-7.5); PLATELET COUNT 155 10^3/UL (140-415); RED BLOOD COUNT 4.54 10^6/ul (4.70-6.10); RED CELL DISTRIBUTION WIDTH 14.5 % (11.5-14.5); WHITE BLOOD COUNT 6.5 10^3/ul (4.8-10.8)
--- NOTE | 2016-11-04 03:29 | RADRPT ---
PROCEDURE: CT Brain without contrast. CLINICAL INDICATION: Acute onset of right upper extremity weakness TECHNIQUE: Axial images from the skull base through the vertex without IV contrast. Multiplanar r eformatted images were made. Images were reviewed on a PACS workstation. The CTDIvol is 43.05 mGy and the DLP is 720.23 mGycm. One or more of the following dose reduction techniques were used: auto mated exposure control, adjustment of the mA and/or kV according to patient size, or use of iterativ e reconstruction technique. COMPARISON: None. FINDINGS: The ventricles and cisterns are normal for age. There is no evidence for territorial infarction or intracranial hemorrhage. No mass or midline shift is seen. No extra-axial fluid collection is seen . . Intracranial vascular calcification is seen. There is mild mucoperiosteal thickening of the ethmoid and maxillary sinuses. IMPRESSION: No definite acute intracranial abnormality.. Hyperacute stroke may not be visible by CT. MRI may b e obtained if needed. Results were called to Trung Vo at 11/04/2016 3:23:49 AM RPTAT: HLBE Physician Denzel Date Time Electronically viewed and signed by Physician Denzel on 11/04/2016 03:29 BARBARA/
--- NOTE | 2016-11-04 03:30 | RADRPT ---
PROCEDURE: XR Chest. CLINICAL INDICATION: Pulmonary process not otherwise specified TECHNIQUE: Portable single view of the chest COMPARISON: 07/07/2016 FINDINGS: Top normal heart size. Slightly torturuous aorta. No definite acute infiltrate, pleural effusion, or overt congestive heart failure. Minimal degenerative change of the spine. IMPRESSION: No definite acute pulmonary disease. RPTAT: HLBE Belinda Boyd Physician Date Time Electronically viewed and signed by Belinda Boyd, Physician on 11/04/2016 03:29 BARBARA/
[2016-11-04 03:34] LABS: ANION GAP 12 (8-16); BLOOD UREA NITROGEN 27 mg/dl (7-20); CALCIUM 9.8 mg/dl (8.4-10.2); CARBON DIOXIDE 27 mmol/L (21-31); CHLORIDE 106 mmol/L (97-110); CREATININE 1.17 mg/dl (0.61-1.24); GLUCOSE 107 mg/dl (70-220); POTASSIUM 3.6 mmol/L (3.5-5.1); SODIUM 141 mmol/L (135-144)
[2016-11-04] MEDS ORDERED: SOD CHLORIDE 0.9% 100 ML ONE (03:34)
[2016-11-04] MEDS ORDERED: IOHEXOL 100 ML ONE (03:34)
[2016-11-04 03:41] LABS: INR 1.62; PT RATIO 1.5
[2016-11-04 03:42] LABS: PARTIAL THROMBOPLASTIN TIME 40.9 Sec (25.0-35.0)
[2016-11-04 03:48] LABS: TROPONIN-I < 0.012 ng/ml (0.00-0.12)
--- NOTE | 2016-11-04 04:08 | RADRPT ---
PROCEDURE: CT angiogram of the head and neck with contrast. CLINICAL INDICATION: Right arm numbness. TECHNIQUE: CT angiogram of the head and neck was performed on a multi-detector high-resolution CT scanner. Contiguous axial images were obtained after the dynamic injection of 95 cc Omnipaque 350 intravenous contrast. Coronal and sagittal as well as maximal intensity projection reformations wer e obtained. 3-D post processing was also performed. Images were reviewed on a PACS workstation. One or more of the following dose reduction techniques were used: - Automated exposure control. - Adjustment of the mA and/or kV according to patient size. - Use of iterative reconstruction technique. Exam CTD/vol = 14.75 mGy. Total exam DLP = 620.47 mGy-cm. COMPARISON: None. FINDINGS: Neck: The visualized aortic arch and proximal great vessels demonstrate mild scattered atherosclerot ic calcifications. Bilateral common carotid arteries are normal course and caliber. There is moder ate mixed atherosclerotic plaque within the right carotid bifurcation extending into the proximal in ternal carotid artery with an ulcerated plaque within the bulb. There is less than 50% stenosis of the right proximal internal carotid artery. There is moderate mixed atherosclerotic plaque within t he left carotid bifurcation extending into the proximal internal carotid artery. There is a 50% dorcas nosis of the left proximal internal carotid artery per NASCET criteria. Bilateral mid to distal int ernal carotid and bilateral external carotid arteries are of normal course and caliber. There is mi ld calcific plaque at the origins of bilateral vertebral arteries. There is no occlusion. There is no evidence of aneurysm or dissection. Brain: Bilateral distal internal carotid arteries are normal course and caliber with scattered athe rosclerotic calcifications. Bilateral anterior and middle cerebral arteries are within normal limit s. Bilateral distal vertebral arteries are of normal course and caliber. The basilar artery is int act. Bilateral posterior cerebral arteries are within normal limits. There is no significant steno sis or occlusion. There is no evidence of aneurysm or vascular malformation. The venous structures are unremarkable. IMPRESSION: Moderate mixed atherosclerotic plaque within the right carotid bifurcation with an ulcerated plaque within the bulb. There is less than 50% stenosis of the right proximal internal carotid artery. Moderate mixed atherosclerotic plaque within the left carotid bifurcation extending into the proxima l internal carotid artery. There is a 50% stenosis of the left proximal internal carotid artery per NASCET criteria. Cerebral atherosclerosis. .Sy Paredes MD, MD Date Time Electronically viewed and signed by .Sy Paredes MD, MD on 11/04/2016 04:08 .T/
[2016-11-04 05:00] VITALS: BP 115/67; PULSE 68; RESP 15
--- NOTE | 2016-11-04 05:32 | ERA ---
ER Documentation Chief Complaint Date/Time DATE: 11/04/16 TIME: 05:26 Chief Complaint right arm numbness started at 0130,denies pain,no facial/mouth droop noted HPI Male who comes in with right arm numbness started at 1:30 AM. Denies pain dysarthria. States that he has just arm drifts. No other current complaints. ROS All systems reviewed and are negative except as per history of present illness. Medications Home Meds Active Scripts Metoprolol Tartrate* (Lopressor*) 25 Mg Tab, 25 MG PO BID, #180 TAB Prov:TASH BRITO MD 07/08/16 Reported Medications [[place]] No Conflict Check, 600 MG PO DAILY for SUPPLEMENT 11/04/16 Multivitamin W-Minerals/Lutein (CENTRUM SILVER ULTRA MEN'S TAB) 1 Each Tablet, 1 EACH PO, TAB 11/04/16 Atorvastatin* (Atorvastatin*) 40 Mg Tablet, 40 MG PO QHS, #30 TAB 11/04/16 Rivaroxaban* (Xarelto*) 20 Mg Tablet, 40 MG PO WITH DINNER, TAB 11/04/16 Multivitamins* (Once Daily*) 1 Tab Tablet, 1 TAB PO DAILY, TAB 08/21/14 L.acidoph/L.rhamn/B.bif/B.long (PROBIOTIC ACIDOPHILUS BIOBEADS) 1 Each Tablet.dr , 1 EACH PO DAILY 08/21/14 Tamsulosin Hcl* (Flomax*) 0.4 Mg Cap.er.24h, 0.4 MG PO DAILY, CAP 08/21/14 Allopurinol* (Allopurinol*) 300 Mg Tablet, 150 MG PO DAILY, TAB 08/21/14 Discontinued Reported Medications Aspirin (Low Dose Aspirin) 81 Mg Tablet.dr, 81 MG PO DAILY 08/21/14 Rosuvastatin Calcium* (Crestor*) 20 Mg Tablet, 20 MG PO HS, TAB 08/21/14 Allergies Allergies: Coded Allergies: No Known Allergy (Unverified , 07/07/16) PMhx/Soc History of Surgery: Yes (Cardiac stent x 2002) Anesthesia Reaction: No Hx Neurological Disorder: No Hx Respiratory Disorders: No Hx Cardiac Disorders: Yes (Cardiac Surgery stent ) Hx Psychiatric Problems: No Hx Miscellaneous Medical Probl: No Hx Alcohol Use: Yes (A week ago) Hx Substance Use: No Hx Tobacco Use: Yes (6 sticks/day) Smoking Status: Current every day smoker Physical Exam Vitals Vital Signs Date Time Temp Pulse Resp B/P Pulse Ox O2 Delivery O2 Flow Rate FiO2 11/04/16 05:00 68 15 115/67 96 Room Air 11/04/16 04:00 75 12 121/64 98 Room Air 11/04/16 03:23 70 16 134/78 99 Room Air 11/04/16 03:18 Nasal Cannula 2 11/04/16 02:41 67 16 119/63 97 Room Air 11/04/16 02:30 97.5 66 18 158/78 97 Physical Exam Const: [] Head: Atraumatic Eyes: Normal Conjunctiva ENT: Normal External Ears, Nose and Mouth. Neck: Full range of motion..~ No meningismus. Resp: Clear to auscultation bilaterally Cardio: Regular rate and rhythm, no murmurs Abd: Soft, non tender, non distended. Normal bowel sounds Skin: No petechiae or rashes Back: No midline or flank tenderness Ext: No cyanosis, or edema Neur: Awake and alert Psych: Normal Mood and Affect Result Diagram: 11/04/16 0245 11/04/16 0245 Results 24 hrs Laboratory Tests Test 11/04/16 02:45 11/04/16 03:09 White Blood Count 6.510^3/ul Red Blood Count 4.5410^6/ul Hemoglobin 14.1g/dl Hematocrit 42.1% Mean Corpuscular Volume 92.7fl Mean Corpuscular Hemoglobin 31.1pg Mean Corpuscular Hemoglobin Concent 33.5g/dl Red Cell Distribution Width 14.5% Platelet Count 56224^3/UL Mean Platelet Volume 10.1fl Neutrophils % 65.0% Lymphocytes % 19.5% Monocytes % 7.3% Eosinophils % 7.3% Basophils % 0.6% Nucleated Red Blood Cells % 0.0/100WBC Neutrophils # 4.210^3/ul Lymphocytes # 1.310^3/ul Monocytes # 0.510^3/ul Eosinophils # 0.510^3/ul Basophils # 0.010^3/ul Nucleated Red Blood Cells # 0.010^3/ul Prothrombin Time 19.4Sec Prothrombin Time Ratio 1.5 INR International Normalized Ratio 1.62 Activated Partial Thromboplast Time 40.9Sec Sodium Level 141mmol/L Potassium Level 3.6mmol/L Chloride Level 106mmol/L Carbon Dioxide Level 27mmol/L Anion Gap 12 Blood Urea Nitrogen 27mg/dl Creatinine 1.17mg/dl Glucose Level 107mg/dl Hemoglobin A1c 5.8% Calcium Level 9.8mg/dl Troponin I < 0.012ng/ml Bedside Glucose 111mg/dL Current Medications Medications (Trade) Dose Ordered Sig/Keira Route PRN Reason Start Time Stop Time Status Last Admin Dose Admin Sodium Chloride (NS) 500 ml @ 500 mls/hr Q1H STAT IV 11/04/16 03:07 11/04/16 04:06 DC 11/04/16 03:25 IV Flush 10 ml 10 ml STK-MED ONCE .ROUTE 11/04/16 03:34 11/04/16 03:35 DC 11/04/16 03:53 Sodium Chloride 100 ml @ ud STK-MED ONCE .ROUTE 11/04/16 03:34 11/04/16 03:35 DC 11/04/16 03:53 Iohexol (Omnipaque) 100 ml @ ud STK-MED ONCE .ROUTE 11/04/16 03:34 11/04/16 03:35 DC 11/04/16 03:53 Procedures/MDM EKG: Rate/Rhythm: [Normal Sinus Rhythm] QRS, ST, T-waves: [No changes consistent w/ acute ischemia] Impression: [No evidence of ischemia or arrhythmia] Chest X-ray 1V Interpreted by me: Soft Tissue: No acute abnormalities Bones: No acute abnormalities Mediastinum/Cardiac Silhouette/Lungs: [No acute abnormalities] CT of the head was negative. CT angiogram of head and neck were negative. Please see radiologist full dictation for report Medical decision-makin-year-old male unexplained weakness. This could be secondary to subclavian steal, carotid stenosis however there is no evidence of any critical stenosis in any particular venous distribution. At this point patient will be admitted to telemetry and the preliminary diagnosis of TIA Departure Diagnosis: Primary Impression: Numbness Condition: Serious GHAZALA PIRESBecca Nov 04, 2016 05:32
[2016-11-04 05:37] LABS: PROTIME 19.4 Sec (12.2-14.2)
== END 2016-11-04 06:15 | disposition left against medical advice (07) ==
LOC: E/R 02:05
DX: R20.0 Anesthesia of skin (principal); R40.2252 Coma scale, best verbal response, oriented, at arrival to emergency department; F17.210 Nicotine dependence, cigarettes, uncomplicated; R40.2142 Coma scale, eyes open, spontaneous, at arrival to emergency department; R40.2362 Coma scale, best motor response, obeys commands, at arrival to emergency department; Z79.82 Long term (current) use of aspirin; Z98.61 Coronary angioplasty status; Z79.01 Long term (current) use of anticoagulants
CPT/HCPCS: 36415; 70450; 70496; 70498; 71010; 80048; 82962; 83036; 84484; 85025; 85610; 85730; 93005; 99285; A4310; J7040; Q9967